=== PATIENT | male | born 1995 | race Two or more races ===

== ENCOUNTER 2021-05-23 13:51 | Emergency (ER) | payer OTHER, SELFPAY ==
[2021-05-23 13:54] VITALS: BP 125/75; PULSE 85; RESP 16; TEMP 36.6; O2SAT 98; BMI 22.5
[2021-05-23 14:00] VITALS: BP 123/78; PULSE 82; RESP 18; TEMP 36; O2SAT 99
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
[2021-05-23 15:09] LABS: MANUAL DIFF FLAG NO
[2021-05-23 15:11] LABS: Basophils Percent Auto 0.5 % (0-2); Eosinophils Absolute Auto 0.3 X10*3/uL (0.0-0.4); Eosinophils Percent Auto 5.3 % (0-4); Hematocrit 39.6 % (42-52); Hemoglobin 12.3 g/dl (14.0-18.0); Imm Gran Abs Auto 0.01 X10*3/uL (0.00-0.03); Imm Gran Pct Auto 0.2 % (0.0-0.4); Lymphocytes Absolute Auto 3.2 X10*3/uL (1.2-4.9); Lymphocytes Percent Auto 51.2 % (20-40); Mean Corpuscular HGB Conc 31.1 g/dl (31.0-36.0); Mean Corpuscular Hemoglobin 25.7 pg (27.0-33.0); Mean Corpuscular Volume 82.8 fL (80-98); Mean Platelet Volume 9.8 fL (9.4-12.4); Monocytes Absolute Auto 0.6 X10*3/uL (0.1-1.2); Monocytes Percent Auto 10.2 % (2-11); Neutrophils Absolute Auto 2.1 X10*3/uL (2.0-8.3); Neutrophils Percent Auto 32.6 % (45-73); Platelet Count 254 X10*3/uL (160-400); Red Blood Count 4.78 X10*6/uL (4.60-5.80); Red Cell Distribution Width 12.5 % (11.0-16.0); White Blood Count 6.3 X10*3/uL (4.8-10.8)
[2021-05-23 15:24] LABS: Ethanol < 10 mg/dL
[2021-05-23 15:28] LABS: Alanine Aminotransferase 13 U/L (0-40); Albumin Level 4.7 g/dL (3.5-5.0); Alkaline Phosphatase 56 U/L (39-117); Anion Gap 11 (12-20); Aspartate Amino Transferase 13 U/L (5-37); Bilirubin Direct < 0.2 mg/dL (0.0-0.5); Bilirubin Total 0.4 mg/dL (0.0-1.0); Blood Urea Nitrogen 17 mg/dL (9-16); Calcium 10.1 mg/dL (8.4-10.2); Carbon Dioxide 30 mmol/L (22-29); Chloride 105 mmol/L (96-108); Creatinine Clr Calc Pharmacy 154.7; Estimated Glomerular Filt Rate > 60; Glucose Random 102 mg/dL (60-115); Magnesium 2.2 mg/dL (1.6-2.6); Potassium 4.5 mmol/L (3.3-5.1); Sodium 141 mmol/L (135-145); Total Protein 7.5 g/dL (6.5-8.0)
[2021-05-23 15:37] LABS: COVID-19 Test Negative (Negative); IDNOW Serial# 55D5AD1C
[2021-05-23 16:00] VITALS: RESP 18
--- NOTE | 2021-05-23 16:33 | PC.NURSE ---
patients change booth attendant performed, labs drawn, pt unable to urinate at this time but is aware we need urine. member of care team to speak with patient and will notify us if BHN needs to be consulted.
--- NOTE | 2021-05-23 17:39 | PC.NURSE ---
provider was in room to see the patient, care team is now in speaking with patient to see if they meet criteria.
[2021-05-23] MEDS: Acetaminophen 325 MG TABLET 975 MG PO (17:59)
--- NOTE | 2021-05-23 18:01 | PC.NURSE ---
patient medicated for 12/30 headache
[2021-05-23 18:35] LABS: Amphetamine Screen Urine Not Detected (Not Detect); Barbiturates, Urine Not Detected (Not Detect); Benzodiazepines Screen Urine Not Detected (Not Detect); Cannabinoid Screen Urine POSITIVE (Not Detect); Cocaine Screen Urine Not Detected (Not Detect); Fentanyl, urine Not Detected (Not Detect); Opiate Screen Urine Not Detected (Not Detect); Phencyclidine Screen Urine Not Detected (Not Detect)
--- NOTE | 2021-05-23 18:57 | PC.NURSE ---
patient cleared by care team, pt to discharge
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
== END 2021-05-23 19:03 | disposition home or self-care (01) ==
PROVIDERS: Physician Assistant; Emergency Provider Emergency Medicine; PCP Internal Medicine
DX: F41.9 Anxiety disorder, unspecified (principal); Z20.822 Contact with and (suspected) exposure to COVID-19
CPT/HCPCS: 36415; 80048; 80076; 80307; 82077; 83735; 85025; 87635; 99285